=== PATIENT | male | born 1935 | race Caucasian/White ===

== ENCOUNTER 2017-01-08 21:31 | Emergency (ER) | payer MEDICARE, OTHER ==
--- NOTE | 2017-01-08 22:01 | EDM.PDOC ---
ED HPI GENERAL MEDICAL PROBLEM - General Chief Complaint: General Stated Complaint: Dizziness, low BP Time Seen by Provider: 01/08/17 21:36 Source of Information: Reports: Patient, EMS, EMS Notes Reviewed, Family, RN, RN Notes Reviewed History Limitations: Reports: No Limitations - History of Present Illness INITIAL COMMENTS - FREE TEXT/NARRATIVE: Patient is brought to the ED at [facility] via EMS with complaints of dizziness. Patient states his symptoms began shortly after he ate supper. Patient states he was outside most of the day in the heat. He admits he did not consume much water today. He denies any head injury or trauma. No falls. Patient feels tired, although he states he had one glass of wine with supper this evening. No chest pain. No SOB. Patient denies any N/V/D. No other focal neurological deficits. Onset: Today, Gradual - Related Data Allergies Allergy/AdvReac Type Severity Reaction Status Date / Time No Known Allergies Allergy Verified 01/08/17 22:08 Past Medical History Cardiovascular History: Reports: High Cholesterol, Hypertension, Stents Other Cardiovascular History: descending aortic dissection Musculoskeletal History: Reports: Fracture Oncologic (Cancer) History: Reports: Bladder - Past Surgical History GI Surgical History: Reports: Appendectomy Musculoskeletal Surgical History: Reports: Hip Replacement Social & Family History - Tobacco Use Smoking Status *Q: Never Smoker ED ROS GENERAL - Review of Systems Review Of Systems: See Below Constitutional: Reports: Fatigue. Denies: Fever, Chills, Weakness Respiratory: Denies: Shortness of Breath, Cough Cardiovascular: Denies: Chest Pain, Palpitations GI/Abdominal: Denies: Diarrhea, Nausea, Vomiting Skin: Reports: No Symptoms Neurological: Reports: Dizziness. Denies: Headache, Syncope ED EXAM, GENERAL - Physical Exam Exam: See Below Exam Limited By: No Limitations General Appearance: Alert, No Apparent Distress Throat/Mouth: Other (dry mucous membranes) Head: Atraumatic, Normocephalic Neck: Supple Respiratory/Chest: No Respiratory Distress, Lungs Clear, Normal Breath Sounds Cardiovascular: Normal Peripheral Pulses, Bradycardia Peripheral Pulses: 2+: Radial (L), Radial (R) GI/Abdominal: Normal Bowel Sounds, Soft, Non-Tender Neurological: Alert, Oriented Skin Exam: Warm, Dry, Intact, Normal Color, No Rash Course - Vital Signs Last Recorded V/S: Last Vital Signs Temp 35.8 C 01/08/17 21:35 Pulse 63 01/08/17 21:35 Resp 15 01/08/17 22:45 BP 122/54 L 01/08/17 22:45 Pulse Ox 97 01/08/17 22:45 - Orders/Labs/Meds Orders: Active Orders 24 hr Category Date Time Status EKG 12 Lead [EKG Documentation Completion] [RC] STAT Care 01/08/17 22:05 Active Sodium Chloride 0.9% [Normal Saline] 1,000 ml Med 01/08/17 22:03 Active IV ONETIME Sodium Chloride 0.9% [Saline Flush] Med 01/08/17 22:03 Active 10 ml FLUSH ASDIRECTED PRN Peripheral IV Insertion Adult [OM.PC] Routine Oth 01/08/17 22:03 Ordered Medication Orders Sodium Chloride (Normal Saline) 1,000 mls @ 999 mls/hr IV ONETIME ONE Stop: 01/08/17 23:03 Last Admin: 01/08/17 22:10 Dose: 999 mls/hr Sodium Chloride (Saline Flush) 10 ml FLUSH ASDIRECTED PRN PRN Reason: Keep Vein Open Labs: Laboratory Tests 01/08/17 01/08/17 01/08/17 Range/Units 22:11 22:11 22:40 WBC 9.2 (4.0-10.0) x10^3/uL RBC 4.12 L (4.5-6.0) x10^6/uL Hgb 13.4 L (14.0-18.0) g/dL Hct 37.5 L (40.0-52.0) % MCV 91.0 (78.0-93.0) fL MCH 32.5 H (26.0-32.0) pg MCHC 35.7 (32.0-36.0) g/dL RDW Coeff of [place] 13.2 (10.0-15.0) % Plt Count 113 L (130-400) x10^3/uL Neut % (Auto) 74.2 (50.0-80.0) % Lymph % (Auto) 13.1 L (25.0-50.0) % [place] % (Auto) 11.3 H (2.0-11.0) % Eos % (Auto) 1.2 (0.0-4.0) % Baso % (Auto) 0.2 (0.2-1.2) % Sodium 142 (136-145) mmol/L Potassium 4.4 (3.5-5.1) mmol/L Chloride 105 (98-107) mmol/L Carbon Dioxide 29 (21-32) mmol/L BUN 29 H (7-18) mg/dL Creatinine 1.0 (0.70-1.30) mg/dL Est Cr Clr Drug Dosing TNP Estimated GFR (MDRD) > 60 Glucose 111 H (74-106) mg/dL Calcium 8.8 (8.5-10.1) mg/dL Urine Color Dark yellow H (YELLOW) Urine Appearance Cloudy H (CLEAR) Urine pH 5.5 (5.0-8.0) Ur Specific [place] 1.020 Urine Protein 100 H (NEGATIVE) mg/dL Urine Glucose (UA) Negative (NEGATIVE) mg/dL Urine Ketones 15 H (NEGATIVE) mg/dL Urine Occult Blood Moderate H (NEGATIVE) Urine Nitrite Negative (NEGATIVE) Urine Bilirubin Small H (NEGATIVE) Urine Urobilinogen 1.0 (0.2) EU/dL Ur Leukocyte Esterase Small H (NEGATIVE) Urine RBC 0-5 (NOT SEEN) /HPF Urine WBC 0-5 (NOT SEEN) /HPF Ur Squamous Epith Cells Not seen (NEGATIVE) /HPF Amorphous Sediment Few Urine Bacteria Few H (NEGATIVE) /HPF Hyaline Casts Moderate H (NEGATIVE) /HPF Urine Mucus Many H (NEGATIVE) /LPF Meds: Medications Generic Name Dose Route Start Last Admin Trade Name Freq PRN Reason Stop Dose Admin Sodium Chloride 1,000 mls @ 999 mls/hr 01/08/17 22:03 01/08/17 22:10 Normal Saline IV 01/08/17 23:03 999 mls/hr ONETIME ONE Administration Sodium Chloride 10 ml 01/08/17 22:03 Saline Flush FLUSH ASDIRECTED PRN Keep Vein Open Departure - Departure Time of Disposition: 22:51 Disposition: Home, Self-Care 01 Condition: Good Clinical Impression: Dehydration, moderate - Discharge Information Instructions: Dehydration, Adult, [id number], Rehydration, Adult Referrals: Ewa Cox MD [Primary Care Provider] - Forms: ED Department Discharge Additional Instructions: 1. Stay well hydrated, drink plenty of water and rest 2. See your Primary as symptoms warrant - Problem List Review Problem List Initiated/Reviewed/Updated: Yes - My Orders Last 24 Hours: My Active Orders 01/08/17 22:03 Sodium Chloride 0.9% [Normal Saline] 1,000 ml IV ONETIME Sodium Chloride 0.9% [Saline Flush] 10 ml FLUSH ASDIRECTED PRN Peripheral IV Insertion Adult [OM.PC] Routine 01/08/17 22:05 EKG 12 Lead [EKG Documentation Completion] [RC] STAT - Assessment/Plan Last 24 Hours: My Active Orders 01/08/17 22:03 Sodium Chloride 0.9% [Normal Saline] 1,000 ml IV ONETIME Sodium Chloride 0.9% [Saline Flush] 10 ml FLUSH ASDIRECTED PRN Peripheral IV Insertion Adult [OM.PC] Routine 01/08/17 22:05 EKG 12 Lead [EKG Documentation Completion] [RC] STAT
[2017-01-08] MEDS ORDERED: Sodium Chloride 0.9% 1,000 ML IV ONE (22:03)
[2017-01-08] MEDS ORDERED: Sodium Chloride 0.9% 10 ML Syringe FLUSH PRN (22:03)
[2017-01-08 22:30] LABS: CHLORIDE,CL 105 mmol/L (98-107); SODIUM,NA 142 mmol/L (136-145)
[2017-01-08 22:46] VITALS: BP 122/54
== END 2017-01-08 23:18 | disposition home or self-care (01) ==
LOC: VM.ED 21:31
DX: E86.0 Dehydration (principal); E78.00 Pure hypercholesterolemia, unspecified; I10 Essential (primary) hypertension; Z90.49 Acquired absence of other specified parts of digestive tract; Z96.649 Presence of unspecified artificial hip joint
CPT/HCPCS: 36415; 80048; 81001; 85025; 93005; 96360; 99285; J7030; 99283-GF

== ENCOUNTER 2022-01-05 19:57 | Emergency (ER) | payer MEDICARE, OTHER ==
[2022-01-05] MEDS ORDERED: Sodium Chloride 0.9% 10 ML Syringe FLUSH PRN (20:25)
[2022-01-05] MEDS ORDERED: Sodium Chloride 0.9% 1,000 ML IV SCH (20:45)
[2022-01-05] MEDS ORDERED: Sodium Chloride 0.9% 500 ML IV ONE (20:45)
[2022-01-05 21:04] LABS: PTT,PARTIAL THROMBOPLSTIN TIME 24.7 SEC (20.5-30.9)
[2022-01-05 21:05] VITALS: PULSE 63
[2022-01-05 21:10] LABS: ANION GAP 10.9 mmol/L (5-15)
[2022-01-06 04:43] VITALS: BP 142/64
== END 2022-01-05 22:40 | disposition home or self-care (01) ==
LOC: VM.ED 19:57
DX: R10.13 Epigastric pain (principal); K21.9 Gastro-esophageal reflux disease without esophagitis; I10 Essential (primary) hypertension; Z88.1 Allergy status to other antibiotic agents; Z88.8 Allergy status to other drugs, medicaments and biological substances; Z88.6 Allergy status to analgesic agent; Z79.899 Other long term (current) drug therapy; Z90.49 Acquired absence of other specified parts of digestive tract
CPT/HCPCS: 36415; 71045; 80053; 81001; 83735; 84100; 84484; 85025; 85610; 85730; 96360; 96361; 99284; 99284-25; J7030

== ENCOUNTER 2022-01-28 13:51 | Emergency (ER) | payer MEDICARE, OTHER ==
[2022-01-28] MEDS: Sodium Chloride 0.9% 1,000 ML IV ONE (14:16)
[2022-01-28 14:34] LABS: CHLORIDE,CL 102 mmol/L (98-107); ESTIMATED GFR 42 mL/min (>=60); SODIUM,NA 140 mmol/L (136-145)
[2022-01-28 14:45] VITALS: BP 97/67; PULSE 76
== END 2022-01-28 15:35 | disposition home or self-care (01) ==
LOC: VM.ED 13:51
DX: R53.1 Weakness (principal); E78.00 Pure hypercholesterolemia, unspecified; I10 Essential (primary) hypertension; K21.9 Gastro-esophageal reflux disease without esophagitis; Z86.16 Personal history of COVID-19; Z88.1 Allergy status to other antibiotic agents; Z88.8 Allergy status to other drugs, medicaments and biological substances; Z79.899 Other long term (current) drug therapy
CPT/HCPCS: 71045; 80053; 84484; 85025; 86140; 93005; 93010; 96360; 99284; 99285-25; J7030

== ENCOUNTER 2022-03-24 06:15 | Emergency (ER) | payer MEDICARE, OTHER ==
[2022-03-24] MEDS ORDERED: Ondansetron 4 MG/2 ML SDV ONE (18:47)
[2022-03-24] MEDS ORDERED: Sodium Chloride 0.9% 1,000 ML IV ONE (19:30)
[2022-04-16 15:14] LABS: ANION GAP 10.6 mmol/L (5-15); CHLORIDE,CL 99 mmol/L (98-107); ESTIMATED GFR 66 mL/min (>=60); SODIUM,NA 137 mmol/L (136-145)
== END 2022-03-24 21:25 | disposition home or self-care (01) ==
LOC: VM.ED 06:15
DX: R10.9 Unspecified abdominal pain (principal)
CPT/HCPCS: 71045; 74176; 80053; 81001; 84484; 85025; 93005; 96361; 96374; 99284; J2405; J7030

== ENCOUNTER 2022-03-29 20:30 | Emergency (ER) | payer MEDICARE, OTHER ==
[2022-03-29 20:48] VITALS: BP 130/73; PULSE 67
[2022-03-29 21:34] LABS: CHLORIDE,CL 102 mmol/L (98-107); SODIUM,NA 138 mmol/L (136-145)
[2022-03-29 21:35] LABS: ANION GAP 8.1 mmol/L (5-15); ESTIMATED GFR 54 mL/min (>=60)
[2022-03-29] MEDS: Sodium Chloride 0.9% 1,000 ML IV ONE (22:05)
== END 2022-03-29 23:10 | disposition home or self-care (01) ==
LOC: VM.ED 20:30
DX: R10.9 Unspecified abdominal pain (principal); E78.00 Pure hypercholesterolemia, unspecified; I10 Essential (primary) hypertension; K21.9 Gastro-esophageal reflux disease without esophagitis; Z88.1 Allergy status to other antibiotic agents; Z88.8 Allergy status to other drugs, medicaments and biological substances; Z95.5 Presence of coronary angioplasty implant and graft; Z86.16 Personal history of COVID-19; Z79.899 Other long term (current) drug therapy
CPT/HCPCS: 36415; 80053; 81001; 83690; 85025; 86140; 96360; 99284; J7030